=== PATIENT | male | born 1990 ===

== ENCOUNTER 2022-01-14 13:31 | Emergency (ER) | payer SELFPAY ==
--- NOTE | ~2022-01-14 | XR_ITS ---
EXAMINATION: XR HAND, RIGHT CLINICAL INFORMATION: Swelling and pain status post injury COMPARISON: None TECHNIQUE: PA, lateral, and oblique views of the right hand. FINDINGS: There appears be some soft tissue swelling seen about the first metacarpophalangeal joint. No acute fracture or dislocation is evident. Joint spaces of the hand are maintained. No erosive changes are evident. XR/XR hand RT 2V IMPRESSION: Soft tissue swelling about the first metacarpophalangeal joint without definite avulsion fracture identified.
[2022-01-14 14:37] VITALS: BP 141/92; PULSE 82; RESP 18; TEMP 36.6; O2SAT 99; BMI 23.4
--- NOTE | 2022-01-14 15:41 | ED.EXTPRO ---
HPI - Extremity Problem General Chief complaint: Extremity Injury, Upper Stated complaint: hand inj Time Seen by Provider: 01/14/22 15:24 Source: patient Mode of arrival: ambulatory Limitations: no limitations History of Present Illness HPI Narrative: 31-year-old male no known medical history presents to the emergency department with hand pain and inability to make a wrist to his right hand x3 days progressively worsening. Patient tells me he was going up the stairs, he slipped, tried to catch himself fell onto an outstretched hand and is now having pain over his some, and palm. At this time patient tells me that the pain is uncontrollable, worse at night he tells me it starts pulsating at night and it is a 10/10 pain. He tells me he cannot make a fist and is interfering with his activities of daily living. He denies numbness, tingling, chest pain, shortness of breath, head strike, fevers, chills, blood thinners. He tells me he is able to move bilateral wrist in move all fingers the only motion he has problems with is making a fist with his right hand. MD Complaint: joint swelling and joint paint Onset (ago): day(s) (3) Pain Consistency: constant Location: right Quality: constant Radiation: none Relieving factors: immobilization Exacerbating factors: range of motion Associated symptoms: denies other symptoms Related Data Allergies Allergy/AdvReac Type Severity Reaction Status Date / Time No Known Allergies Allergy Verified 01/14/22 14:36 Review of Systems Review of Systems: Constitutional : No Weight loss, No Fever, No Chills, No Fatigue, No Malaise ENT/Mouth : No sore throat, No Rhinorrhea Eyes: No Eye Pain, No Swelling, No Redness Cardiovascular : No Chest Pain, No SOB, No Dyspnea on Exertion, No Orthopnea, No Edema, No Palpitations Respiratory : No Cough, No Sputum, No Wheezing Gastrointestinal : No Nausea, No Vomiting, No Diarrhea, No Constipation, No abdominal Pain, No Hematochezia, No Melena Genitourinary : No Dysuria, No Urinary Frequency, No Hematuria, Musculoskeletal : + joint pain, No Myalgias, + Joint Swelling Skin : No Skin Lesions, No rash Neuro : No Weakness, No Numbness, No Dizziness, No Headache Psych : No Anxiety/Panic, No Depression All other systems reviewed and are negative Yes all other systems are reviewed and are negative [facility], [facility] Past Medical History Attestation statement: The following information was validated with the patient. Source: old records reviewed and nursing notes reviewed Medical History No known health problems Social History Social History Advance Directives: No Advance Directives Information Provided: No Physical Exam Vital Signs: Vital Signs: Last Vital Signs Temp 97.8 F 01/14/22 14:37 Pulse 82 01/14/22 14:37 Resp 18 01/14/22 14:37 BP 141/92 H 01/14/22 14:37 Pulse Ox 99 01/14/22 14:37 BMI result Body Mass Index 23.4 VSS Appearance: Alert.? Oriented X3.? No acute distress.? Head: Normocephalic, atraumatic, no step-offs or deformities Eyes: Pupils equal, round and reactive to light.? ENT: Pharynx normal.? Neck: Normal inspection.? Neck supple.? CVS: Normal heart rate and rhythm.? Pulses normal.? Respiratory: No respiratory distress.? Breath sounds normal.? Abdomen: Soft and nontender.? Skin: Skin warm and dry.? Normal skin color.? Normal skin turgor.? Extremities: No lower extremity edema.? No calf ttp. 5/5 strength to bilateral upper and lower extremities + pain with formation of fist right hand. Bilateral radial pulses 2+ equal bilateral capillary refill to all digits less than 2 seconds. Sensation intact to bilateral upper extremities. + pain with palpation overlying the anatomical snuffbox on the right Back: No midline tenderness, no C-spine tenderness, full range of motion, no CVA tenderness bilaterally Neuro: Oriented X 3.? No motor deficit.? No sensory deficit. CN 2-12 intact Course Reevaluation(s) Reevaluation #1: X-ray shows soft tissue swelling around the 1st metacarpophalangeal joint however patient does endorse severe pain with palpation over scaphoid bone. At this time patient will be placed in a thumb spica splint. He will be given information to follow-up with orthopedics. Advised him to return with new or worsening symptoms such as paresthesias, numbness or tingling, swelling of the extremity. Comfortable with discharge home Time: 16:53 MDM - Extremity (Nontraumatic) MDM Narrative Medical decision making narrative: 1540 31 yo male presents with right hand pain and pain to anitomical snuff box X3 days s/p foosh. PE pain with formation of fist right hand. Bilateral radial pulses 2+ equal bilateral capillary refill to all digits less than 2 seconds. Sensation intact to bilateral upper extremities. Pain with palpation overlying the anatomical snuffbox on the right Concerned for a scaphoid fracture Plan- xray Medical Records Attestation: I reviewed the patient's medical records. Lab Data Attestation: I reviewed the patient's lab results. Critical Care Time Critical Care Time Critical Care Time: No Discharge Plan Discharge Clinical Impression: Hand pain Patient Disposition: Home, Self-Care Additional Instructions: Take your medications as prescribed. If you were prescribed antibiotics today, it is important that you take your medication to their entirety, do not skip any doses, do not finish them early. Follow-up with your primary care provider this week. Follow-up with orthopedics within the next week. Take ibuprofen every 6 hours, Tylenol every 4 as needed for pain. Return to the emergency department with new or worsening symptoms. Such as numbness, tingling, swelling of the extremity, pain out of proportion, fevers, chills. In case of emergency call 911 Referrals: Physician,None [Primary Care Provider] - 2 days Samantha Perdomo MD [Physician] - 2 days Stand Alone Forms: Work/School Release
[2022-01-14] MEDS: Ketorolac Tromethamine 30 MG/ML VIAL IM (15:45)
== END 2022-01-14 17:14 | disposition home or self-care (01) ==
PROVIDERS: Emergency Provider Internal Medicine
DX: M79.641 Pain in right hand (principal); M25.441 Effusion, right hand
CPT/HCPCS: 29125; 73120; 96372; 99284; J1885

== ENCOUNTER 2023-03-23 17:00 | Emergency (ER) | payer MEDICAID, SELFPAY ==
[2023-03-23 17:11] VITALS: BP 141/93; PULSE 95; RESP 18; TEMP 36.9; O2SAT 98; BMI 25.8
--- NOTE | 2023-03-23 17:11 | ED_ITS ---
HPI - Back Pain/Injury General Chief Complaint: Back Pain/Injury Stated Complaint: Back pain Time Seen by Provider: 03/23/23 17:12 Source: patient Mode of arrival: ambulatory Limitations: no limitations History of Present Illness HPI Narrative: 32 yo male presents to the ER for evaluation of acute onset of nontraumatic right lower back pain that started 2 days ago and shoots down his right leg. he reports the pain is worse with any movement. He denies any heavy lifting or falls. He denies any urinary symptoms. He states he has intermittent numbness in the right leg. He has been taking intermittent ibuprofen in using Lidoderm patches with only minor relief. He denies any known history of back issues in the past. MD elicited complaint: back pain Onset (ago): day(s) (2) Timing: progressively worsening Severity: severe Similar Symptoms Previously: No Quality: burning and sharp Location: right lower back Radiation: right upper leg and right leg below the knee Exacerbating factors: movement Relieving factors: immobilization and medication Context: unknown Associated symptoms: difficulty walking and loss of sensation in lower extremities Treatments prior to arrival: NSAIDS Work related injury: No Related Data Previous Rx's Medication Instructions Recorded cyclobenzaprine 10 mg tablet 10 mg PO TID PRN muscle spasm #14 03/23/23 tabs naproxen 500 mg tablet 500 mg PO BID PRN pain #20 tabs 03/23/23 prednisone 20 mg tablet 40 mg PO DAILY #10 tabs 03/23/23 Allergies Allergy/AdvReac Type Severity Reaction Status Date / Time No Known Allergies Allergy Verified 03/23/23 17:11 Review of Systems Review of Systems: Yes all other systems are reviewed and are negative [facility] Past Medical History Medical History No known health problems Social History Social History Advance Directives: No Advance Directives Information Provided: No Physical Exam Vital Signs: Vital Signs: Last Vital Signs Temp 98.5 F 03/23/23 17:11 Pulse 95 03/23/23 17:11 Resp 18 03/23/23 17:11 BP 141/93 H 03/23/23 17:11 Pulse Ox 98 03/23/23 17:11 O2 Del Method Room Air 03/23/23 17:11 BMI result Body Mass Index 25.8 Appearance: Alert. Oriented X3. No acute distress. HEENT: normal inspection CVS: Normal heart rate and rhythm. Pulses normal. Respiratory: No respiratory distress. Skin: Skin warm and dry. Normal skin color. Normal skin turgor. No rashes. Back: normal inspection. tenderness of the right lumbar area, +SI joint tenderness on the right side. limited spinal flexion due to pain Extremities: normal inspection x4. normal ROM Neuro: Oriented X 3. No motor deficit. No sensory deficit. Steady gait Medical Decision Making Medical Decision Making MDM Narrative: 32-year-old male presents the ER for evaluation of right lower back pain that radiates down the back of his right leg for the last 2 days. No red flag symptoms of low back pain. No history of IVDA. No fevers. Exam and clinical presentation are consistent with lumbar radiculopathy, possible sciatica. Plan to start him on steroids, muscle relaxers, pain control. Workup provided per request. Differential Diagnosis Differential Diagnoses: The differential diagnosis associated with the presentation includes Inflammatory disorders, malignancy, trauma, osteoporosis, nerve root compression, radiculopathy, plexopathy, degenerative disc disease, disc herniation, spinal stenosis, sacroiliac joint dysfunction, facet joint injury, and less likely infection?like abscess or diskitis External Record Review External record reviewed: Prior outpatient labs and Prior outpatient radiology Prescription Management I considered prescription management with: Pain Medication and Other ( Most relaxer) Critical Care Time Critical Care Time Critical Care Time: No Discharge Plan Discharge Clinical Impression: Acute lumbar radiculopathy Patient Disposition: Home, Self-Care Instructions: Lumbar Radiculopathy (ED), Lower Back Exercises (ED) Additional Instructions: Your pain is most likely due to muscle strain and spasm, along with nerve inflammation in your spine causing pain to radiate down your leg. No bending, lifting or twisting. Use ice several times per day for 20 minutes at a time for the next 48 hours and then change to heat. Take medications as prescribed to help with pain and discomfort. Follow up with your Primary Care Doctor this week. If your pain worsens, if you develop new numbness, tingling, weakness, loss of function or incontinence call 911 or come back to the ER right away for evaluation. Prescriptions: New prednisone 20 mg tablet 40 mg PO DAILY Qty: 10 0RF cyclobenzaprine 10 mg tablet 10 mg PO TID PRN (Reason: muscle spasm) Qty: 14 0RF naproxen 500 mg tablet 500 mg PO BID PRN (Reason: pain) Qty: 20 0RF Stand Alone Forms: Work/School Release Interventions: ED Discharge Assessment Last Done: 03/23/23 17:30 Discharge Date/Time: 03/23/23 17:30
== END 2023-03-23 17:30 | disposition home or self-care (01) ==
PROVIDERS: Emergency Provider Emergency Medicine Emergency Medical Services
DX: M54.16 Radiculopathy, lumbar region (principal); M54.50 Low back pain, unspecified; M79.604 Pain in right leg; Z79.899 Other long term (current) drug therapy
CPT/HCPCS: 99282; 99283

== ENCOUNTER 2023-03-31 00:56 | Emergency (ER) | payer MEDICAID, SELFPAY ==
--- NOTE | ~2023-03-31 | XR_ITS ---
EXAMINATION: XR LUMBOSACRAL SPINE CLINICAL INFORMATION: Back pain COMPARISON: None available. TECHNIQUE: Three views of the lumbosacral spine. FINDINGS: There is anatomic alignment of the lumbar vertebral bodies and posterior elements. There appears to be transitional vertebral artery at the lumbosacral junction which may reflect partial lumbarization of S5. There is disc space narrowing with surrounding endplate osteophytes at the lumbosacral articulation. Vertebral body heights are maintained. No acute fracture is seen. Facet arthropathy noted in the lower lumbar spine. Sacroiliac joints appear intact. XR/XR lumbar spine 2-3V IMPRESSION: No acute findings identified. Degenerative changes at the lumbosacral articulation.
--- NOTE | ~2023-03-31 | CT_ITS ---
EXAMINATION: CT ABDOMEN AND PELVIS WITHOUT CONTRAST CLINICAL INFORMATION: Right-sided back pain with blood in urine COMPARISON: None available. TECHNIQUE: Multidetector volumetric imaging was performed from the superior aspect of the liver through the pubic symphysis. Sagittal and coronal reformatted images were obtained on the technologist's workstation. This CT examination was performed using dose optimization techniques as appropriate, variously including the following: *Automated exposure control *Adjustment of mA and/or kV according to patient size (this includes techniques or standardized protocols for targeted exams where dose is matched to indication/reason for exam; i.e. extremities or head) *Use of iterative reconstruction technique DLP: 511 mGy-cm FINDINGS: LUNG BASES: The visualized lung bases are unremarkable. LIVER, GALLBLADDER, AND BILIARY TREE: The liver is normal in size, shape, and attenuation. No focal hepatic lesion or biliary ductal dilatation is identified. The gallbladder is unremarkable with no evidence of radiopaque gallstones, gallbladder wall thickening, or obvious pericholecystic inflammatory changes. PANCREAS: Unremarkable. SPLEEN: Unremarkable. ADRENAL GLANDS: Unremarkable. KIDNEYS AND URETERS: No hydronephrosis or obstructing calculus bilaterally. A couple tiny faint calculi are suspected in the right kidney. No perinephric stranding. BLADDER: Mildly distended and grossly unremarkable. GASTROINTESTINAL TRACT: No evidence of bowel obstruction or significant wall thickening. The appendix is unremarkable. No free fluid or free air is seen. ABDOMINAL WALL: No significant hernia is appreciated. LYMPH NODES: No lymphadenopathy is seen, though assessment is limited in the absence of intravenous contrast. VASCULAR: Unremarkable. PELVIC VISCERA: Unremarkable. OSSEOUS STRUCTURES: Degenerative change noted at the lumbosacral junction. There appears to be partial lumbarization of S1. CT/CT abdomen pelvis wo IV con IMPRESSION: No acute findings identified in the abdomen/pelvis. No hydronephrosis or obstructing calculus. A couple tiny faint calculi are suspected in the right kidney.
[2023-03-31 00:59] VITALS: BP 150/94; PULSE 93; RESP 19; TEMP 36.4; O2SAT 99; BMI 25.1
--- NOTE | 2023-03-31 03:12 | ED_ITS ---
HPI - Back Pain/Injury General Chief Complaint: Back Pain/Injury Stated Complaint: LBP Time Seen by Provider: 03/31/23 02:34 Source: patient Mode of arrival: ambulatory Limitations: no limitations History of Present Illness HPI Narrative: 32-year-old male came in for evaluation low back pain that going to the right lower extremities for 1 week, patient declined strenuous activity recently or trauma or injury to the back. describes the pain as mostly dull aching constant pain to the right lower back that is more with movement and walking, no fever, no chills, no urinary incontinence, no stool incontinence. Patient was seen last week for the same problem discharge home on course of prednisone, NSAIDs, and muscle relaxant. Related Data Previous Rx's Medication Instructions Recorded cyclobenzaprine 10 mg tablet 10 mg PO TID PRN muscle spasm #14 03/23/23 tabs naproxen 500 mg tablet 500 mg PO BID PRN pain #20 tabs 03/23/23 prednisone 20 mg tablet 40 mg PO DAILY #10 tabs 03/23/23 ciprofloxacin HCl 500 mg tablet 500 mg PO BID #14 tabs 03/31/23 (Cipro) cyclobenzaprine 10 mg tablet 10 mg PO TID PRN muscle spasm #14 03/31/23 tabs oxycodone 5 mg tablet 5 mg PO Q8H PRN pain #14 tabs 03/31/23 Allergies Allergy/AdvReac Type Severity Reaction Status Date / Time No Known Allergies Allergy Verified 03/31/23 01:03 Review of Systems Review of Systems: All other systems are reviewed and are negative Constitutional: Reports as per HPI and Reports no additional constitutional complaints Eyes: Reports as per HPI and Reports no additional eye complaints Reports system reviewed and no additional complaints, except as documented Cardiovascular: Reports as per HPI and Reports no additional cardiovascular complaints Respiratory: Reports as per HPI and Reports no additional respiratory complaints Gastrointestinal: Reports as per HPI and Reports no additional gastrointestinal complaints Genitourinary: Reports no additional female genitourinary complaints Musculoskeletal: Reports no additional musculoskeletal complaints Skin/Breast: Reports system reviewed and no additional complaints, except as docu Psychiatric: Reports no additional psychiatric complaints Endocrine: Reports no additional endocrine complaints Hematologic/Lymphatic: Reports no additional hematologic/lymphatic complaints Allergic/Immunologic: Reports no additional allergic/immunologic complaints Reports system reviewed and no additional complaints, except as documented and Reports Abnormal speech present [facility] Past Medical History Medical History No known health problems Social History Social History Advance Directives: No Advance Directives Information Provided: No Physical Exam Vital Signs: Vital Signs: Last Vital Signs Temp 97.6 F 03/31/23 00:59 Pulse 93 03/31/23 00:59 Resp 19 03/31/23 00:59 BP 150/94 H 03/31/23 00:59 Pulse Ox 99 03/31/23 00:59 O2 Del Method Room Air 03/31/23 00:59 BMI result Body Mass Index 25.1 Vital signs have been reviewed as appeared to be correct. Blood pressure n ormal. Heart rate normal. Respiration rate normal. Temperature normal. Oxygen saturation normal. Appearance: Alert. Oriented X3. No acute distress. Head: Normal external exam. Normocephalic. Atraumatic. No Carlson signs noted. No raccoon eyes noted Eyes: PERRLA. EOMI. Conjunctiva and sclera normal. Eyelids normal. ENT: TM's Normal. Pharynx normal. Uvula midline. Moist mucous membranes. No trismus noted. No drooling noted. No muffled voice noted. Neck: Normal inspection. Neck supple. FROM. No adenopathy. Thyroid Normal. No meningeal signs. No neck mass noted. CVS: Normal heart rate and rhythm. Heart sound normal. No murmurs noted. Pulses normal throughout. Respiratory: No respiratory distress. Painless inspiration. Breath sounds normal. No wheezes/rales/rhonchi noted. Chest nontender. No accessory muscle usage noted or decreased air movement noted. Abdomen: Soft and nontender. Bowel sounds normal in all 4 quadrants. No distention noted. No organomegaly noted. No visible injury noted. Back: No CVA tenderness. Full range of motion noted. Skin: Skin warm and dry. Normal skin color. Normal skin turgor. No rashes/lesions/lacerations noted. Extremities: No lower extremity edema. Extremities exhibit normal range of motion. Extremities nontender. Neuro: Oriented X 3. Cranial nerve exam: II-XII are grossly intact No motor deficit. No sensory deficit. Reflexes normal. Course Course Course Narrative: Back pain mostly to the right lower back radiating to both lower extremities with no weakness, no urinary incontinence, able to ambulate in the emergency department was given oxycodone with good relief. Patient is sexually active with 1 partner decline risk for STD, urine is showing UTI patient was encouraged to drink plenty of fluid and will start the patient on Cipro, The plan was discussed with the patient rest, heating pad, will prescribe oxycodone, and follow-up with PCP. Medications Administered Discontinued Medications Generic Name Dose Route Start Last Admin Trade Name Freq PRN Reason Stop Dose Admin Oxycodone HCl 5 mg 03/31/23 03:11 03/31/23 03:39 Oxycodone Hcl Immed Release 5 Mg Tablet PO 03/31/23 03:12 5 mg ONCE ONE Administration Medical Decision Making Differential Diagnosis Differential Diagnoses: The differential diagnosis associated with the presentation includes (Myofascial muscle strain, lumbar radiculopathy, pyelonephritis, kidney stone.) Lab Data Labs: Lab Results 03/31/23 Range/Units 03:39 Urine Color Yellow Urine Appearance Cloudy Urine pH 8.5 (5.0-9.0) Ur Specific [place] 1.020 (1.005-1.025) Urine Protein Negative (Neg-Trace) mg/dL Urine Glucose (UA) Negative (Negative) mg/dL Urine Ketones Negative (Negative) mg/dL Urine Blood Negative (Negative) Urine Nitrite Negative (Negative) Ur Leukocyte Esterase Small (1+) H (Negative) Urine RBC 6-10 H (0-2) /HPF Urine WBC 11-20 H (0-5) /HPF Ur Squamous Epith Cells 0-2 (0-2) /HPF Urine Bacteria None Seen (None Seen) Hyaline Casts 0-2 (0-2) /LPF Discharge Plan Discharge Clinical Impression: Strain of lumbar region, Urinary tract infection Patient Disposition: Home, Self-Care Instructions: Urinary Tract Infection in Men (ED), Acute Low Back Pain (ED) Prescriptions: New oxycodone 5 mg tablet 5 mg PO Q8H PRN (Reason: pain) Qty: 14 0RF Rx Instructions: Partial Fill upon patient request. cyclobenzaprine 10 mg tablet 10 mg PO TID PRN (Reason: muscle spasm) Qty: 14 0RF ciprofloxacin HCl [Cipro] 500 mg tablet 500 mg PO BID Qty: 14 0RF No Action prednisone 20 mg tablet 40 mg PO DAILY Qty: 10 0RF cyclobenzaprine 10 mg tablet 10 mg PO TID PRN (Reason: muscle spasm) Qty: 14 0RF naproxen 500 mg tablet 500 mg PO BID PRN (Reason: pain) Qty: 20 0RF Stand Alone Forms: Work/School Release
[2023-03-31] MEDS: oxyCODONE HCl Immed Release 5 MG TABLET PO (03:39)
[2023-03-31 03:46] LABS: Appearance Urine Cloudy; Color Urine Yellow; Glucose Urine UA Negative (Negative); Leukocyte Esterase Urine Small (1+) (Negative); Nitrite Urine Negative (Negative); PH 8.5 (5.0-9.0); UMIC TRIGGER UACC YES; Urine Blood Negative (Negative); Urine Ketones Negative (Negative); Urine Protein Negative (Neg-Trace)
[2023-03-31 03:52] LABS: Bacteria Urine None Seen (None Seen); Hyaline Casts Urine 0-2 /LPF (0-2); Squamous Epithelial Cell Urine 0-2 /HPF (0-2); UACC Culture Trigger YES
== END 2023-03-31 06:10 | disposition home or self-care (01) ==
PROVIDERS: Emergency Provider Emergency Medicine
DX: S39.012A Strain of muscle, fascia and tendon of lower back, initial encounter (principal); X50.9XXA Other and unspecified overexertion or strenuous movements or postures, initial encounter; N39.0 Urinary tract infection, site not specified; Y93.F2 Activity, caregiving, lifting; Y92.019 Unspecified place in single-family (private) house as the place of occurrence of the external cause; Y99.9 Unspecified external cause status
CPT/HCPCS: 72100; 74176; 81001; 87086; 99283; 99284

== ENCOUNTER 2023-05-12 04:41 | Emergency (ER) | payer MEDICAID, SELFPAY ==
--- NOTE | ~2023-05-12 | XR_ITS ---
EXAMINATION: XR WRIST, RIGHT XR HAND, RIGHT CLINICAL INFORMATION: Injury. Pain COMPARISON: None available. TECHNIQUE: PA, lateral, and oblique views of the right wrist and PA, lateral, and oblique views of the right hand FINDINGS: RIGHT WRIST: The bones and soft tissues are normal. No fracture. Alignment is anatomic. Joint spaces are maintained. No erosions or soft tissue calcifications. RIGHT HAND: There is boxer's fracture distal fifth metacarpal with moderate volar angulation. No additional fracture seen involving the right hand. Right lateral hand is in a hard cast. XR/XR hand wrist RT IMPRESSION: Boxer's fracture distal fifth metacarpal with moderate volar angulation. No additional fracture seen involving the right hand.
[2023-05-12 04:45] VITALS: BP 220/100; PULSE 121; O2SAT 97
[2023-05-12 04:47] VITALS: BP 162/95; PULSE 120; RESP 20; TEMP 36.8; O2SAT 97; BMI 25.1
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
[2023-05-12] MEDS: oxyCODONE HCl Immed Release 5 MG TABLET 10 MG PO (05:14)
--- NOTE | 2023-05-12 06:37 | PC.NURSE ---
pt provided with food and drink at his request. pt used urinal at bedside, sample sent. call lopez within reach. waiting for care team consult. will CTM
[2023-05-12 06:50] LABS: Amphetamine Screen Urine Not Detected (Not Detect); Barbiturates, Urine Not Detected (Not Detect); Benzodiazepines Screen Urine Not Detected (Not Detect); Cannabinoid Screen Urine Not Detected (Not Detect); Cocaine Screen Urine POSITIVE (Not Detect); Fentanyl, urine POSITIVE (Not Detect); Opiate Screen Urine Not Detected (Not Detect); Phencyclidine Screen Urine Not Detected (Not Detect)
[2023-05-12 07:01] VITALS: BP 146/91; PULSE 91; RESP 18; TEMP 36.7; O2SAT 98
--- NOTE | 2023-05-12 07:03 | PC.NURSE ---
patient a&ox3, rt hand splinted by another facility with splint and coban wrap-- pt c/o 08/31 pain to that area stating he feels like the coban is too tight- will speak with provider about changing it out to janet wrap. pt lungs clear, denies si/hi, vitals stable, call lopez within reach, will continue to monitor.
[2023-05-12 09:07] VITALS: BP 130/89; PULSE 85; RESP 17; O2SAT 97
== END 2023-05-12 09:09 | disposition home or self-care (01) ==
PROVIDERS: Emergency Provider Internal Medicine
DX: F32.A Depression, unspecified (principal); S62.306A Unspecified fracture of fifth metacarpal bone, right hand, initial encounter for closed fracture; W22.09XA Striking against other stationary object, initial encounter; Y93.9 Activity, unspecified; Y92.9 Unspecified place or not applicable; Y99.9 Unspecified external cause status; Z79.899 Other long term (current) drug therapy
CPT/HCPCS: 29125; 73110; 73130; 80307; 99284

== ENCOUNTER 2023-05-19 09:46 | Outpatient (REF) | payer MEDICAID, SELFPAY ==
--- NOTE | ~2023-05-19 | XR_ITS ---
EXAMINATION: XR HAND, RIGHT CLINICAL INFORMATION: Right hand pain. COMPARISON: 05/12/2023 and 01/14/2022. TECHNIQUE: PA, lateral, and oblique views of the right hand. FINDINGS: There is again noted to be a comminuted fracture of the distal right 5th metatarsal bone with stable volar angulation. No dislocation is evident. No significant periosteal new bone formation. XR/XR hand RT min 3V IMPRESSION: No significant change in appearance of comminuted angulated fracture of the right 5th metacarpal.
== END 2023-05-19 09:47 | disposition home or self-care (01) ==
LOC: HO.HOSX 09:46
PROVIDERS: Visit Provider Orthopaedic Surgery
DX: M79.641 Pain in right hand (principal)
CPT/HCPCS: 73130; 99202

== ENCOUNTER 2023-05-26 05:51 | Emergency (ER) | payer MEDICAID, SELFPAY ==
[2023-05-26 06:06] VITALS: BP 130/80; BP 131/85; PULSE 100; PULSE 96; RESP 16; TEMP 37.3; O2SAT 98; BMI 27.5
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
[2023-05-26 06:56] VITALS: BP 119/62; PULSE 86; RESP 18; O2SAT 97
--- NOTE | 2023-05-26 07:01 | PC.NURSE ---
Alert and oriented. States here because he has been having hard time since his mom . has been drinking alcohol everyday because he needs it to get through the day. broke his hand a week ago and had a cast that he removed. Reports punching a wall again and now has 10/10 right hand pain. Right hand with some swelling but no open area or bruising observed. Denies SI/ HI states just having a hard time.
[2023-05-26] MEDS: Ketorolac Tromethamine 15 MG/ML VIAL IM (07:06)
--- NOTE | 2023-05-26 07:41 | PC.NURSE ---
Seen by provider, provider made ortho apt for patient. Patient aware that plan is wait until ortho opens so he can be seen. Patient provided with food and fluids.
--- NOTE | 2023-05-26 08:10 | PC.NURSE ---
Reports pain has improved, resting quietly at this time
--- NOTE | 2023-05-26 08:32 | PC.NURSE ---
Reviewed discharge plan with patient who verbalized understanding. Educated patient on how and when to use narcan. Patient brought to front lobby of er and shown where to go for ortho apt.
== END 2023-05-26 08:41 | disposition home or self-care (01) ==
PROVIDERS: Emergency Provider Emergency Medicine
DX: M79.641 Pain in right hand (principal); S62.356D Nondisplaced fracture of shaft of fifth metacarpal bone, right hand, subsequent encounter for fracture with routine healing; X58.XXXD Exposure to other specified factors, subsequent encounter
CPT/HCPCS: 96372; 99284; J1885

== ENCOUNTER 2023-06-10 12:00 | Outpatient (REF) | payer MEDICAID, SELFPAY | END 2023-06-10 12:01 | disposition home or self-care (01) | LOC: HO.HOSX 12:00 | PROVIDERS: Visit Provider Physician Assistant | DX: Z13.89 Encounter for screening for other disorder (principal) ==

== ENCOUNTER 2023-09-11 03:12 | Emergency (ER) | payer MEDICAID, SELFPAY ==
[2023-09-11 03:13] VITALS: BP 184/107; PULSE 132; RESP 18; TEMP 36.7; O2SAT 96; BMI 27.1
[2023-09-11 03:46] LABS: MANUAL DIFF FLAG NO
[2023-09-11 03:47] LABS: Basophils Percent Auto 0.5 % (0-2); Eosinophils Percent Auto 0.6 % (0-4); Hematocrit 44.8 % (42.0-52.0); Hemoglobin 15.6 g/dl (14.0-18.0); Imm Gran Abs Auto 0.02 X10*3/uL (0.00-0.03); Imm Gran Pct Auto 0.3 % (0.0-0.4); Lymphocytes Absolute Auto 1.4 X10*3/uL (1.2-4.9); Lymphocytes Percent Auto 21.9 % (20-40); Mean Corpuscular HGB Conc 34.8 g/dl (31.0-36.0); Mean Corpuscular Hemoglobin 31.9 pg (27.0-33.0); Mean Corpuscular Volume 91.6 fL (80.0-98.0); Mean Platelet Volume 8.9 fL (9.4-12.4); Monocytes Absolute Auto 0.7 X10*3/uL (0.1-1.2); Monocytes Percent Auto 10.3 % (2-11); Neutrophils Absolute Auto 4.3 x10*3/uL (2.0-8.3); Neutrophils Percent Auto 66.4 % (45-73); Platelet Count 269 X10*3/uL (160-400); Red Blood Count 4.89 X10*6/uL (4.60-5.80); Red Cell Distribution Width 12.8 % (11.0-16.0); White Blood Count 6.5 X10*3/uL (4.8-10.8)
[2023-09-11 04:00] LABS: COVID-19 Test Negative (Negative); IDNOW Serial# 9DB6401D
[2023-09-11 04:02] LABS: Alanine Aminotransferase 27 U/L (0-40); Albumin Level 4.6 g/dL (3.5-5.0); Alkaline Phosphatase 65 U/L (39-117); Anion Gap 16 (12-20); Aspartate Amino Transferase 23 U/L (5-37); Bilirubin Total 0.5 mg/dL (0.0-1.0); Blood Urea Nitrogen 8 mg/dL (9-16); Calcium 9.9 mg/dL (8.4-10.2); Carbon Dioxide 22 mmol/L (22-29); Chloride 107 mmol/L (96-108); Creatinine Clr Calc Pharmacy 139.8; Estimated Glomerular Filt Rate > 60; Ethanol 136 mg/dL; Glucose Random 105 mg/dL (60-115); Potassium 3.5 mmol/L (3.3-5.1); Sodium 141 mmol/L (135-145); Total Protein 7.8 g/dL (6.5-8.0)
[2023-09-11 04:30] LABS: Appearance Urine Clear; Color Urine Yellow; Glucose Urine UA Negative (Negative); Leukocyte Esterase Urine Negative (Negative); Nitrite Urine Negative (Negative); PH 5.5 (5.0-9.0); UMIC TRIGGER UA YES; Urine Blood Small (1+) (Negative); Urine Ketones Negative (Negative); Urine Protein Negative (Neg-Trace)
[2023-09-11 04:34] LABS: Amphetamine Screen Urine Not Detected (Not Detect); Barbiturates, Urine Not Detected (Not Detect); Benzodiazepines Screen Urine Not Detected (Not Detect); Cannabinoid Screen Urine Not Detected (Not Detect); Cocaine Screen Urine POSITIVE (Not Detect); Fentanyl, urine POSITIVE (Not Detect); Opiate Screen Urine Not Detected (Not Detect); Phencyclidine Screen Urine Not Detected (Not Detect)
[2023-09-11 04:48] LABS: Bacteria Urine None Seen (None Seen); Hyaline Casts Urine 0-2 /LPF (0-2); RBC Urine 0-2 /HPF (0-2); Squamous Epithelial Cell Urine 0-2 /HPF (0-2); WBC Urine 0-5 /HPF (0-5)
--- NOTE | 2023-09-11 06:54 | PC.NURSE ---
patient slept through the night, no distress observed/reported, behavior non concerning, med rec completed/currently not on any medication, care consult ordered/pending evaluation, labs completed/resulted, will continue to monitor.
--- NOTE | 2023-09-11 07:09 | PC.NURSE ---
patient appears to remain asleep respirations are even and unlabored patient appears in no distress.
--- NOTE | 2023-09-11 07:37 | ED_ITS ---
HPI - Psych General Chief Complaint: Psychiatric Symptoms Stated Complaint: Seeking help Time Seen by Provider: 09/11/23 07:11 Source: patient Mode of arrival: ambulatory Limitations: no limitations History of Present Illness HPI Narrative: Patient under more stress lately had few drinks increased life stress with relationship had argument with his girlfriend does not want to live anymore but no plans patient came here at 03:00 patient's left no woke up and seeing did he feels okay to go home denies any SI at the time of evaluation Related Data Home Medications Medication Instructions Recorded Confirmed No Known Home Meds 09/11/23 09/11/23 Allergies Allergy/AdvReac Type Severity Reaction Status Date / Time No Known Allergies Allergy Verified 05/19/23 09:53 Review of Systems 2 Review of Systems: Yes all other systems are reviewed and are negative [facility] Past Medical History Medical History No known health problems Social History Social History Alcohol intake: current Alcohol intake frequency: 0-2 drinks per day Substance Use Type: Crack/Cocaine and Marijuana Advance Directives: No Advance Directives Information Provided: Yes Current occupational status: employed Current occupation: construction/eft hand Physical Exam 2 Vital Signs: Vital Signs: Last Vital Signs Temp 98.0 F 09/11/23 03:13 Pulse 132 H 09/11/23 03:13 Resp 18 09/11/23 03:13 BP 184/107 H 09/11/23 03:13 Pulse Ox 96 09/11/23 03:13 BMI result Body Mass Index 27.1 Appearance: Alert. Oriented X3. No acute distress. Eyes: PERRLA, No Nystagmus ENT: Pharynx normal. Oral Mucosa moist Neck: Normal inspection. Neck supple. CVS: Normal heart rate and rhythm. Pulses normal. Respiratory: No respiratory distress. Equal air entry bilateral, no wheezing/rales/rhonchi Abdomen: Soft and nontender. Bowel sounds are present, no mass palpable, no CVA tenderness Skin: Skin warm and dry. Normal skin color. Normal skin turgor. Extremities: No lower extremity edema. No calf tenderness psych: Stable mood denies any SI HI no hallucination or delusion Neuro: Oriented X 3. No motor deficit. No sensory deficit.No cerebellar signs , cranial nerves II-XII intact Medications Administered Discontinued Medications Generic Name Dose Route Start Last Admin Trade Name Napoleon PRN Reason Stop Dose Admin Acetaminophen 650 mg 09/11/23 09:27 09/11/23 09:30 Acetaminophen 325 Mg Tablet PO 09/11/23 09:28 650 mg ONCE ONE Administration Medical Decision Making Medical Decision Making [facility] Narrative: Patient with no known psychiatric history denying any major depression at this time patient is stable denies any SI seen by care team will discharge patient home Differential Diagnosis Differential Diagnoses: The differential diagnosis associated with the presentation includes Depression/SI/anxiety Lab Data [facility] Lab Attestation statement: I reviewed the patient's lab results. 09/11/23 03:40 09/11/23 03:40 Labs: Lab Results 09/11/23 09/11/23 Range/Units 03:40 04:18 WBC 6.5 (4.8-10.8) X10*3/uL RBC 4.89 (4.60-5.80) X10*6/uL Hgb 15.6 (14.0-18.0) g/dl Hct 44.8 (42.0-52.0) % MCV 91.6 (80.0-98.0) fL MCH 31.9 (27.0-33.0) pg MCHC 34.8 (31.0-36.0) g/dl RDW 12.8 (11.0-16.0) % Plt Count 269 (160-400) X10*3/uL MPV 8.9 L (9.4-12.4) fL Immature Gran % (Auto) 0.3 (0.0-0.4) % Neut % (Auto) 66.4 (45-73) % Lymph % (Auto) 21.9 (20-40) % Wheeler % (Auto) 10.3 (2-11) % Eos % (Auto) 0.6 (0-4) % Baso % (Auto) 0.5 (0-2) % Lymph # (Auto) 1.4 (1.2-4.9) X10*3/uL Wheeler # (Auto) 0.7 (0.1-1.2) X10*3/uL Eos # (Auto) 0.0 (0.0-0.4) X10*3/uL Baso # (Auto) 0.0 (0.0-0.2) X10*3/uL Abs Immat Gran (auto) 0.02 (0.00-0.03) X10*3/uL Absolute Neuts (auto) 4.3 (2.0-8.3) x10*3/uL Absolute Nucleated RBC 0.000 (0.0-0.012) X10*3/uL Nucleated RBC % (auto) 0.0 (0.0-0.2) /100WBC Sodium 141 (135-145) mmol/L Potassium 3.5 (3.3-5.1) mmol/L Chloride 107 (96-108) mmol/L Carbon Dioxide 22 (22-29) mmol/L Anion Gap 16 (12-20) BUN 8 L (9-16) mg/dL Creatinine 0.80 (0.5-1.4) mg/dL Estim Creat Clear Calc 139.8 Estimated GFR > 60 Random Glucose 105 (60-115) mg/dL Calcium 9.9 (8.4-10.2) mg/dL Total Bilirubin 0.5 (0.0-1.0) mg/dL AST 23 (5-37) U/L ALT 27 (0-40) U/L Alkaline Phosphatase 65 (39-117) U/L Total Protein 7.8 (6.5-8.0) g/dL Albumin 4.6 (3.5-5.0) g/dL Urine Color Yellow Urine Appearance Clear Urine pH 5.5 (5.0-9.0) Ur Specific Tamiment 1.010 (1.005-1.025) Urine Protein Negative (Neg-Trace) mg/dL Urine Glucose (UA) Negative (Negative) mg/dL Urine Ketones Negative (Negative) mg/dL Urine Blood Small (1+) H (Negative) Urine Nitrite Negative (Negative) Ur Leukocyte Esterase Negative (Negative) Urine RBC 0-2 (0-2) /HPF Urine WBC 0-5 (0-5) /HPF Ur Squamous Epith Cells 0-2 (0-2) /HPF Urine Bacteria None Seen (None Seen) Hyaline Casts 0-2 (0-2) /LPF Urine Opiates Screen Not Detected (Not Detect) Urine Fentanyl Screen POSITIVE H (Not Detect) Ur Barbiturates Screen Not Detected (Not Detect) Ur Phencyclidine Scrn Not Detected (Not Detect) Ur Amphetamines Screen Not Detected (Not Detect) U Benzodiazepines Scrn Not Detected (Not Detect) Urine Cocaine Screen POSITIVE H (Not Detect) U Marijuana (THC) Screen Not Detected (Not Detect) Ethyl Alcohol 136 mg/dL COVID-19 (MINAL) Negative (Negative) COVID-19 Clin Com See Note Discharge Plan Discharge Clinical Impression: Depression, Alcohol abuse Patient Disposition: Home, Self-Care Instructions: Depression (ED), Abuse of Alcohol (ED) Additional Instructions: Follow-up with therapist as outpatient Prescriptions: No Action No Known Home Meds Interventions: [place]-Suicide Risk Severity Scale Last Done: 09/11/23 06:53 ED Discharge Assessment Last Done: 09/11/23 09:32 Discharge Date/Time: 09/11/23 09:33
[2023-09-11] MEDS: Acetaminophen 325 MG TABLET 650 MG PO (09:30)
== END 2023-09-11 09:33 | disposition home or self-care (01) ==
PROVIDERS: Emergency Provider Internal Medicine
DX: F32.A Depression, unspecified (principal); F10.10 Alcohol abuse, uncomplicated; Y90.6 Blood alcohol level of 120-199 mg/100 ml; Z11.52 Encounter for screening for COVID-19
CPT/HCPCS: 80053; 80307; 81001; 85025; 87635; 99284

== ENCOUNTER 2023-10-14 04:17 | Emergency (ER) | payer MEDICAID, SELFPAY ==
[2023-10-14 04:26] VITALS: BP 161/102; BP 210/110; PULSE 115; PULSE 125; RESP 20; TEMP 36.7; O2SAT 96; BMI 27.9
[2023-10-14 04:38] LABS: Basophils Percent Auto 0.3 % (0-2); Eosinophils Percent Auto 0.1 % (0-4); Hematocrit 45.3 % (42.0-52.0); Hemoglobin 15.8 g/dl (14.0-18.0); Imm Gran Abs Auto 0.01 X10*3/uL (0.00-0.03); Imm Gran Pct Auto 0.1 % (0.0-0.4); Lymphocytes Absolute Auto 1.5 X10*3/uL (1.2-4.9); Lymphocytes Percent Auto 20.5 % (20-40); MANUAL DIFF FLAG NO; Mean Corpuscular HGB Conc 34.9 g/dl (31.0-36.0); Mean Corpuscular Hemoglobin 31.9 pg (27.0-33.0); Mean Corpuscular Volume 91.5 fL (80.0-98.0); Mean Platelet Volume 9.2 fL (9.4-12.4); Monocytes Absolute Auto 0.7 X10*3/uL (0.1-1.2); Monocytes Percent Auto 9.8 % (2-11); Neutrophils Absolute Auto 5.1 x10*3/uL (2.0-8.3); Neutrophils Percent Auto 69.2 % (45-73); Platelet Count 262 X10*3/uL (160-400); Red Blood Count 4.95 X10*6/uL (4.60-5.80); White Blood Count 7.4 X10*3/uL (4.8-10.8)
[2023-10-14 04:51] LABS: Alanine Aminotransferase 33 U/L (0-40); Albumin Level 4.8 g/dL (3.5-5.0); Alkaline Phosphatase 67 U/L (39-117); Anion Gap 15 (12-20); Aspartate Amino Transferase 26 U/L (5-37); Bilirubin Total 0.3 mg/dL (0.0-1.0); Blood Urea Nitrogen 7 mg/dL (9-16); Calcium 9.6 mg/dL (8.4-10.2); Carbon Dioxide 25 mmol/L (22-29); Chloride 107 mmol/L (96-108); Creatinine Clr Calc Pharmacy 145.8; Estimated Glomerular Filt Rate > 60; Glucose Random 98 mg/dL (60-115); Potassium 3.3 mmol/L (3.3-5.1); Sodium 144 mmol/L (135-145)
--- NOTE | 2023-10-14 04:54 | ED.PSYCH ---
HPI - Psych General Chief Complaint: Psychiatric Symptoms Stated Complaint: ETOH, CRISIS Time Seen by Provider: 10/14/23 04:51 Source: patient Mode of arrival: ambulatory Limitations: no limitations History of Present Illness HPI Narrative: Patient has a substance abuse under increased stress as he found out his girlfriend dating somebody else denies any SI or HI had few drinks and cocaine earlier today does not have any therapist does not know what he can do to relieve the stress Related Data Home Medications Medication Instructions Recorded Confirmed No Known Home Meds 09/11/23 09/11/23 Allergies Allergy/AdvReac Type Severity Reaction Status Date / Time No Known Allergies Allergy Verified 05/19/23 09:53 Review of Systems Review of Systems: Yes all other systems are reviewed and are negative REPLACED BY [facility] Past Medical History Medical History No known health problems Social History Alcohol intake: current Alcohol intake frequency: 3 or more drinks per day Smoked in Last 30 Days: Yes Use of substances other than those prescribed or required for medical reasons: Yes Substance Use Type: Crack/Cocaine Substance Use Frequency: Weekly Substance Use Frequency Other:: 2x week Last Used Substance: Hours (ago) Advance Directives: No Advance Directives Information Provided: No Current occupational status: employed Current occupation: construction/eft hand Physical Exam Vital Signs: Vital Signs: Last Vital Signs Temp 97.6 F 10/14/23 06:39 Pulse 94 10/14/23 06:39 Resp 16 10/14/23 06:39 BP 113/59 L 10/14/23 06:39 Pulse Ox 98 10/14/23 06:39 O2 Del Method Room Air 10/14/23 06:39 BMI result Body Mass Index 27.9 Appearance: Alert. Oriented X3. No acute distress. Eyes: PERRLA, No Nystagmus ENT: Pharynx normal. Oral Mucosa moist Neck: Normal inspection. Neck supple. CVS: Normal heart rate and rhythm. Pulses normal. Respiratory: No respiratory distress. Equal air entry bilateral, Abdomen: Soft and nontender. Bowel sounds are present, Skin: Skin warm and dry. Normal skin color. Normal skin turgor. Extremities: No lower extremity edema. No calf tenderness psych: Feel depressed denied any SI or HI no hallucination or delusion ETOH+ Neuro: Oriented X 3. No motor deficit. No sensory deficit.No cerebellar signs , cranial nerves II-XII intact Medical Decision Making Medical Decision Making [facility] Narrative: Patient with significant depression with alcohol use and cocaine use denied any SI or HI asking for some help will get care team in more for evaluation Lab Data [facility] Lab Attestation statement: I reviewed the patient's lab results. 10/14/23 04:32 10/14/23 04:32 Labs: Lab Results 10/14/23 10/14/23 Range/Units 04:32 04:52 WBC 7.4 (4.8-10.8) X10*3/uL RBC 4.95 (4.60-5.80) X10*6/uL Hgb 15.8 (14.0-18.0) g/dl Hct 45.3 (42.0-52.0) % MCV 91.5 (80.0-98.0) fL MCH 31.9 (27.0-33.0) pg MCHC 34.9 (31.0-36.0) g/dl RDW 13.0 (11.0-16.0) % Plt Count 262 (160-400) X10*3/uL MPV 9.2 L (9.4-12.4) fL Immature Gran % (Auto) 0.1 (0.0-0.4) % Neut % (Auto) 69.2 (45-73) % Lymph % (Auto) 20.5 (20-40) % [place] % (Auto) 9.8 (2-11) % Eos % (Auto) 0.1 (0-4) % Baso % (Auto) 0.3 (0-2) % Lymph # (Auto) 1.5 (1.2-4.9) X10*3/uL [place] # (Auto) 0.7 (0.1-1.2) X10*3/uL Eos # (Auto) 0.0 (0.0-0.4) X10*3/uL Baso # (Auto) 0.0 (0.0-0.2) X10*3/uL Abs Immat Gran (auto) 0.01 (0.00-0.03) X10*3/uL Absolute Neuts (auto) 5.1 (2.0-8.3) x10*3/uL Absolute Nucleated RBC 0.000 (0.0-0.012) X10*3/uL Nucleated RBC % (auto) 0.0 (0.0-0.2) /100WBC Sodium 144 (135-145) mmol/L Potassium 3.3 (3.3-5.1) mmol/L Chloride 107 (96-108) mmol/L Carbon Dioxide 25 (22-29) mmol/L Anion Gap 15 (12-20) BUN 7 L (9-16) mg/dL Creatinine 0.83 (0.5-1.4) mg/dL Estim Creat Clear Calc 145.8 Estimated GFR > 60 Random Glucose 98 (60-115) mg/dL Calcium 9.6 (8.4-10.2) mg/dL Total Bilirubin 0.3 (0.0-1.0) mg/dL AST 26 (5-37) U/L ALT 33 (0-40) U/L Alkaline Phosphatase 67 (39-117) U/L Total Protein 8.0 (6.5-8.0) g/dL Albumin 4.8 (3.5-5.0) g/dL Urine Opiates Screen Not Detected (Not Detect) Urine Fentanyl Screen Not Detected (Not Detect) Ur Barbiturates Screen Not Detected (Not Detect) Ur Phencyclidine Scrn Not Detected (Not Detect) Ur Amphetamines Screen Not Detected (Not Detect) U Benzodiazepines Scrn Not Detected (Not Detect) Urine Cocaine Screen POSITIVE H (Not Detect) U Marijuana (THC) Screen Not Detected (Not Detect) Ethyl Alcohol 200 mg/dL Chlam trachomat DNA PCR NOT DETECTED (Not Detect.) N.gonorrhoeae DNA (PCR) NOT DETECTED (Not Detect.) Discharge Plan Discharge Clinical Impression: Depression, Polysubstance abuse Patient Disposition: Still a Patient Prescriptions: No Action No Known Home Meds Interventions: [place]-Suicide Risk Severity Scale Last Done: 10/14/23 04:32
[2023-10-14 05:05] LABS: Ethanol 200 mg/dL
[2023-10-14 05:07] LABS: Amphetamine Screen Urine Not Detected (Not Detect); Barbiturates, Urine Not Detected (Not Detect); Benzodiazepines Screen Urine Not Detected (Not Detect); Cannabinoid Screen Urine Not Detected (Not Detect); Cocaine Screen Urine POSITIVE (Not Detect); Fentanyl, urine Not Detected (Not Detect); Opiate Screen Urine Not Detected (Not Detect); Phencyclidine Screen Urine Not Detected (Not Detect)
[2023-10-14 06:27] LABS: CT PCR NOT DETECTED (Not Detect.); NG PCR NOT DETECTED (Not Detect.)
[2023-10-14 06:39] VITALS: BP 113/59; PULSE 94; RESP 16; TEMP 36.4; O2SAT 98
--- NOTE | 2023-10-14 06:55 | PC.NURSE ---
belongings in [place]
[2023-10-14 07:16] VITALS: BP 110/67; PULSE 89; RESP 14; O2SAT 97
--- NOTE | 2023-10-14 07:30 | PC.NURSE ---
PT IS A/O X 4 NO SOB/PAVEL NOTED SPEAKS IN FULL SENTENCES. PT DENIES ANY SI/HI. PT REQUESTING TO BE D/C HOME. PT REQUESTED/GIVEN [employer] AND [employer].
--- NOTE | 2023-10-14 07:47 | PC.NURSE ---
BELONGINGS RETURNED TO PATIENT.
== END 2023-10-14 07:48 | disposition home or self-care (01) ==
PROVIDERS: Emergency Provider Internal Medicine
DX: F32.A Depression, unspecified (principal); F19.10 Other psychoactive substance abuse, uncomplicated
CPT/HCPCS: 0353U; 36415; 80053; 80307; 85025; 99284